=== PATIENT | female | born 1960 | race Caucasian/White ===

== ENCOUNTER → 2022-03-27 | Outpatient (CLI) | payer OTHER | LOC: CARDFS 13:53 | PROVIDERS: ATTEND Internal Medicine Cardiovascular Disease | DX: I10 Essential (primary) hypertension (principal); I25.10 Atherosclerotic heart disease of native coronary artery without angina pectoris | CPT/HCPCS: 93306 ==

== ENCOUNTER → 2022-03-29 | Outpatient (CLI) | payer OTHER ==
[2022-03-29 09:05] LABS: HEMATOCRIT 36 % (35-52); HEMOGLOBIN 11.5 g/dL (11.5-16.0); MEAN CORPUSCULAR HEMOGLOBIN 28 pg (25-34); MEAN CORPUSCULAR HGB CONC 32 g/dL (32-36); MEAN CORPUSCULAR VOLUME 87 fL (80-99); MEAN PLATELET VOLUME 10.3 fL (9.0-12.2); PLATELET COUNT 264 10^3/uL (130-400); WHITE BLOOD COUNT 8.1 10^3/uL (4.3-11.0)
[2022-03-29 09:48] LABS: ALBUMIN 4.1 GM/DL (3.2-4.5); BILIRUBIN,TOTAL 0.5 MG/DL (0.1-1.0); CALCIUM 9.4 MG/DL (8.5-10.1); CREATININE SERUM 1.23 MG/DL (0.60-1.30); POTASSIUM 4.8 MMOL/L (3.6-5.0); TOTAL PROTEIN 7.3 GM/DL (6.4-8.2)
== END ==
LOC: LAB FS 08:44
PROVIDERS: ATTEND Internal Medicine Cardiovascular Disease
DX: I10 Essential (primary) hypertension (principal); I25.10 Atherosclerotic heart disease of native coronary artery without angina pectoris
CPT/HCPCS: 36415; 80053; 80061; 83036; 84443; 85027

== ENCOUNTER 2022-07-23 13:00 | Emergency (ER) | payer OTHER ==
[~2022-07-23] VITALS: Ht 175.3 cm; Wt 90.7 kg
--- NOTE | 2022-07-23 13:12 | ED Neurological Problem ---
General Stated Complaint: DIZZINESS; ELEV BP History of Present Illness Date Seen by Provider: Jul 23, 2022 Time Seen by Provider: 13:12 Initial Comments 62-year-old female presents with complaints of dizziness. She reports her symptoms have been going on for 5 days. That she went to her primary care provider and they sent her here for further evaluation. They report that her blood pressures been a little high. She denies any prior history of blood pressure problems. Denies any chest pain, focal weaknesses, nausea or vomiting. Allergies and Home Medications Allergies Coded Allergies: No Known Drug Allergies (Unverified , 07/23/22) Patient Home Medication List Home Medication List Reviewed: Yes Review of Systems Review of Systems Constitutional: No chills; dizziness; No fever Eyes: No Symptoms Reported Ears, Nose, Mouth, Throat: no symptoms reported Respiratory: no symptoms reported Cardiovascular: no symptoms reported Genitourinary: no symptoms reported Physical Exam Vital Signs Vital Signs - First Documented 07/23/22 13:10 Temp 36.7 Pulse 72 Resp 18 B/P (MAP) 178/92 (120) O2 Delivery Room Air Capillary Refill : Height, Weight, BMI Height: '" Weight: lbs. oz. kg; BMI Method: General Appearance: WD/WN, no apparent distress HEENT: other (Mild horizontal nystagmus) Neck: non-tender, full range of motion Respiratory: lungs clear, normal breath sounds Cardiovascular: normal peripheral pulses, regular rate, rhythm Gastrointestinal: non tender, soft Neurologic/Psychiatric: granulating blender II-XII nml as tested, no motor/sensory deficits, alert, normal mood/affect, oriented x 3 Crainal Nerves: normal hearing, normal speech, PERRL Coordination/Gait: normal gait Motor/Sensory: no motor deficit, no sensory deficit, no pronator drift Skin: normal color, warm/dry Progress/Results/Core Measures Results/Orders Lab Results Laboratory Tests Test 07/23/22 13:34 Range/Units White Blood Count 6.9 4.3-11.0 10^3/uL Red Blood Count 4.62 3.80-5.11 10^6/uL Hemoglobin 12.4 11.5-16.0 g/dL Hematocrit 39 35-52 % Mean Corpuscular Volume 84 80-99 fL Mean Corpuscular Hemoglobin 27 25-34 pg Mean Corpuscular Hemoglobin Concent 32 32-36 g/dL Red Cell Distribution Width 15.8 H 10.0-14.5 % Platelet Count 246 130-400 10^3/uL Mean Platelet Volume 10.5 9.0-12.2 fL Immature Granulocyte % (Auto) 0 % Neutrophils (%) (Auto) 60 42-75 % Lymphocytes (%) (Auto) 29 12-44 % Monocytes (%) (Auto) 7 0-12 % Eosinophils (%) (Auto) 3 0-10 % Basophils (%) (Auto) 1 0-10 % Neutrophils # (Auto) 4.2 1.8-7.8 10^3/uL Lymphocytes # (Auto) 2.0 1.0-4.0 10^3/uL Monocytes # (Auto) 0.5 0.0-1.0 10^3/uL Eosinophils # (Auto) 0.2 0.0-0.3 10^3/uL Basophils # (Auto) 0.1 0.0-0.1 10^3/uL Immature Granulocyte # (Auto) 0.0 0.0-0.1 10^3/uL Sodium Level 135 135-145 MMOL/L Potassium Level 4.7 3.6-5.0 MMOL/L Chloride Level 102 98-107 MMOL/L Carbon Dioxide Level 21 21-32 MMOL/L Anion Gap 12 5-14 MMOL/L Blood Urea Nitrogen 22 H 7-18 MG/DL Creatinine 1.13 0.60-1.30 MG/DL Estimat Glomerular Filtration Rate 55 BUN/Creatinine Ratio 19 Glucose Level 141 H 70-105 MG/DL Calcium Level 9.4 8.5-10.1 MG/DL Corrected Calcium 9.0 8.5-10.1 MG/DL Magnesium Level 1.6 1.6-2.4 MG/DL Total Bilirubin 0.4 0.1-1.0 MG/DL Aspartate Amino Transf (AST/SGOT) 15 5-34 U/L Alanine Aminotransferase (ALT/SGPT) 13 0-55 U/L Alkaline Phosphatase 100 40-136 U/L Total Protein 7.3 6.4-8.2 GM/DL Albumin 4.5 3.2-4.5 GM/DL My Orders Orders - MAGUIRE,BETTY L DO Cbc With Automated Diff (07/23/22 13:17) Comprehensive Metabolic Panel (07/23/22 13:17) Magnesium (07/23/22 13:17) Ct Head Wo (07/23/22 13:17) Meclizine Tablet (Antivert Tablet) (07/23/22 13:30) Enalaprilat Injection (Vasotec Injection (07/23/22 13:45) Ondansetron Injection (Zofran Injectio (07/23/22 13:45) Diphenhydramine Injection (Benadryl Inje (07/23/22 13:46) Medications Given in ED Current Medications Medications Dose Ordered Sig/Branden Route Start Time Stop Time Status Last Admin Dose Admin Enalaprilat 2.5 mg ONCE ONCE IV 07/23/22 13:45 07/23/22 13:46 DC 07/23/22 13:54 2.5 MG Meclizine HCl 50 mg ONCE ONCE PO 07/23/22 13:30 07/23/22 13:31 DC 07/23/22 13:54 50 MG Ondansetron HCl 4 mg ONCE ONCE IVP 07/23/22 13:45 07/23/22 13:46 DC 07/23/22 13:54 4 MG Vital Signs/I&O 07/23/22 13:10 Temp 36.7 Pulse 72 Resp 18 B/P (MAP) 178/92 (120) O2 Delivery Room Air Progress Progress Note : Progress Note Patient's diagnostic studies were ordered, reviewed and interpreted by me. Patient's radiologic study was initially reviewed by me with final reading per radiology report. Patient's CT exam showed no acute intracranial abnormality. Patient's labs shows no acute abnormalities. Patient's blood pressure was moderately elevated throughout her stay. It responded appropriately to enalapril at IV. Patient's symptoms of dizziness improved following some meclizine and Benadryl. Patient likely has benign positional vertigo along with uncontrolled hypertension. She is currently on lisinopril 10 mg daily. I did have a discussion with her and recommended she increase it to 20 mg daily. She can also use meclizine to help with the dizziness. Since patient's symptoms are exacerbated by movement with nystagmus I recommended she try Con's maneuvers. I will provide her with information to find online so that she can do this at home. Patient was stable and discharged home. Diagnostic Imaging Diagonstic Imaging: CT Plain Films/CT/US/NM/MRI: head Comments Date of Exam:07/23/22 CT HEAD WO EXAMINATION: CT head without contrast. TECHNIQUE: Multiple contiguous axial images were obtained through the brain without the use of intravenous contrast. All CT scans use one or more of the following dose optimizing techniques: automated exposure control, MA and/or KvP adjustment based on patient size and exam type or iterative reconstruction. HISTORY: New onset dizziness. Elevated blood pressure. COMPARISON: None available. FINDINGS: No large acute territorial ischemia, mass, or hemorrhage. No midline shift or mass effect. The ventricles, cortical sulci, and basilar cisterns are patent and unremarkable. The orbits are normal. Paranasal sinuses are normal. Mastoid air cells are clear. No soft tissue abnormality is seen. No osseus lesions or fractures are seen. IMPRESSION: 1. No large acute territorial ischemia, mass, or hemorrhage. Reviewed: Reviewed by Me, Reviewed/Discussed Departure Impression Primary Impression: Hypertension, uncontrolled Additional Impression: Benign positional vertigo Qualified Codes: H81.10 - Benign paroxysmal vertigo, unspecified ear Disposition: 01 HOME, SELF-CARE Condition: Stable Departure-Patient Inst. Referrals: JUANITA PRIETO MD (PCP) Primary Care Physician Patient Instructions: Vestibular Exercises, High Blood Pressure ED, Controlling Your Blood Pressure Through Lifestyle, Vertigo (a Type of Dizziness) (DC) Add. Discharge Instructions: Please increase your lisinopril to 20 mg daily from 10 mg daily. You may use [id number] meclizine/Antivert as directed on package. Please review print out for exercises that you can help with your dizziness. Follow-up with your primary care provider in 1 week to recheck your blood pressure. Return to the ER as needed BETTY MAGUIRE DO Jul 23, 2022 13:12
[2022-07-23] MEDS ORDERED: MECLIZINE 25 MG (ANTIVERT) TAB PO ONE (13:30)
[2022-07-23 13:38] LABS: BASOPHILS # (AUTO) 0.1 10^3/uL (0.0-0.1); BASOPHILS % (AUTO) 1 % (0-10); EOSINOPHILS # (AUTO) 0.2 10^3/uL (0.0-0.3); EOSINOPHILS % (AUTO) 3 % (0-10); HEMATOCRIT 39 % (35-52); HEMOGLOBIN 12.4 g/dL (11.5-16.0); LYMPHOCYTES % (AUTO) 29 % (12-44); MEAN CORPUSCULAR HEMOGLOBIN 27 pg (25-34); MEAN CORPUSCULAR HGB CONC 32 g/dL (32-36); MEAN CORPUSCULAR VOLUME 84 fL (80-99); MEAN PLATELET VOLUME 10.5 fL (9.0-12.2); MONOCYTES # (AUTO) 0.5 10^3/uL (0.0-1.0); MONOCYTES % (AUTO) 7 % (0-12); NEUTROPHILS # (AUTO) 4.2 10^3/uL (1.8-7.8); NEUTROPHILS % (AUTO) 60 % (42-75); PLATELET COUNT 246 10^3/uL (130-400); WHITE BLOOD COUNT 6.9 10^3/uL (4.3-11.0)
[2022-07-23] MEDS ORDERED: ONDANSETRON 4 MG/2 ML (SDV) Z0FRAN IVP ONE (13:45)
[2022-07-23] MEDS ORDERED: ENALAPRILAT 2.5 MG/2 ML (VASOTEC) VIAL IV ONE (13:45)
[2022-07-23] MEDS ORDERED: diphenhydrAMINE 50 MG/ML INJ (BENADRYL) IV STA (13:46)
--- NOTE | 2022-07-23 13:57 | Diagnostic Imaging Report ---
EXAMINATION: CT head without contrast. TECHNIQUE: Multiple contiguous axial images were obtained through the brain without the use of intravenous contrast. All CT scans use one or more of the following dose optimizing techniques: automated exposure control, MA and/or KvP adjustment based on patient size and exam type or iterative reconstruction. HISTORY: New onset dizziness. Elevated blood pressure. COMPARISON: None available. FINDINGS: No large acute territorial ischemia, mass, or hemorrhage. No midline shift or mass effect. The ventricles, cortical sulci, and basilar cisterns are patent and unremarkable. The orbits are normal. Paranasal sinuses are normal. Mastoid air cells are clear. No soft tissue abnormality is seen. No osseus lesions or fractures are seen. IMPRESSION: 1. No large acute territorial ischemia, mass, or hemorrhage. Dictated by: Dictated on workstation # [id number]
[2022-07-23 14:17] LABS: ALBUMIN 4.5 GM/DL (3.2-4.5); BILIRUBIN,TOTAL 0.4 MG/DL (0.1-1.0); CALCIUM 9.4 MG/DL (8.5-10.1); CREATININE SERUM 1.13 MG/DL (0.60-1.30); MAGNESIUM 1.6 MG/DL (1.6-2.4); POTASSIUM 4.7 MMOL/L (3.6-5.0); TOTAL PROTEIN 7.3 GM/DL (6.4-8.2)
[2022-07-23 14:42] VITALS: BP 157/86
== END 2022-07-23 14:42 | disposition home or self-care (01) ==
LOC: EDUNIT# 13:00 → ER FS 13:01
DX: I10 Essential (primary) hypertension (principal); H81.10 Benign paroxysmal vertigo, unspecified ear; Z79.899 Other long term (current) drug therapy
CPT/HCPCS: 36415; 70450; 80053; 83735; 85025